=== PATIENT | male | born 1965 | race Caucasian/White ===

== ENCOUNTER 2021-08-24 13:15 | Emergency (ER) | payer BC, OTHER ==
[~2021-08-24] VITALS: Ht 177.8 cm; Wt 145.0 kg
[2021-08-24 13:25] VITALS: BP 140/78
[2021-08-24] MEDS ORDERED: LIDOCAINE WITH 8.4% SOD BICARB 3 ML DISP.SYRIN. INJ ONE (13:30)
--- NOTE | 2021-08-24 13:53 | PHYS DOC ---
Past Medical History Past Surgical History: Cholecystectomy General Adult EDM: Chief Complaint: LACERATION/AVULSION HPI: HPI: Patient is a 55 year old male patient with history of COVID19 with chronic hypoxia O2 saturations 88% on room air baseline presenting to the ED today to be evaluated after falling. [place], [place] he tripped on the carpet and fell face forward hitting his forehead on a trash can. Patient denies any loss of consciousness. He has a laceration on the left upper eyebrow. Denies being on any blood thinners. Review of Systems: Review of Systems: Constitutional: Denies fever or chills. [] Eyes: Denies change in visual acuity. [] HENT: Denies nasal congestion or sore throat. [] Respiratory: Denies cough or shortness of breath. [] Cardiovascular: Denies chest pain or edema. [] GI: Denies abdominal pain, nausea, vomiting, bloody stools or diarrhea. [] : Denies dysuria. [] Musculoskeletal: Denies back pain or joint pain. [] Integument: Reports left upper eyebrow laceration] Neurologic: Denies headache, focal weakness or sensory changes. [] Psychiatric: Denies depression or anxiety. [] Heart Score: C/O Chest Pain: N/A Risk Factors: Risk Factors: DM, Current or recent (<one month) smoker, HTN, HLP, family history of CAD, obesity. Risk Scores: Score 0 - 3: 2.5% MACE over next 6 weeks - Discharge Home Score 4 - 6: 20.3% MACE over next 6 weeks - Admit for Clinical Observation Score 7 - 10: 72.7% MACE over next 6 weeks - Early Invasive Strategies Current Medications: Current Medications Medications (Trade) Dose Ordered Sig/Cuauhtemoc Start Time Stop Time Status Last Admin Dose Admin Diphtheria/ Tetanus/Acell Pertussis (Boostrix) 0.5 ml ONCE ONCE 08/24/21 14:00 08/24/21 14:01 Lidocaine HCl (Buffered Lidocaine 1%) 6 ml 1X ONCE 08/24/21 13:30 08/24/21 13:32 DC Allergies: Allergies: Allergies Coded Allergies Type Severity Reaction Last Updated Verified apixaban Allergy Intermediate Unknown 08/24/21 Yes Physical Exam: PE: Constitutional: Well developed, well nourished, no acute distress, non-toxic appearance. [] HENT: Normocephalic, bilateral external ears normal, oropharynx moist, no oral exudates, nose normal. [] Eyes: PERRLA, EOMI, conjunctiva normal, no discharge. [] Neck: Normal range of motion, no tenderness, supple, no stridor. [] Cardiovascular:Heart rate regular rhythm, no murmur [] Lungs & Thorax: Bilateral breath sounds clear to auscultation [] Abdomen: Bowel sounds normal, soft, no tenderness, no masses, no pulsatile masses. [] Skin: Left upper eyebrow with a laceration approximately 3 cm long, there is no eye involvement. Bleeding is controlled. Back: No tenderness, no CVA tenderness. [] Extremities: No tenderness, no cyanosis, no clubbing, ROM intact, no edema. [] Neurologic: Alert and oriented X 3, normal motor function, normal sensory function, no focal deficits noted. Cranial nerves II through XII intact Psychologic: Affect normal, judgement normal, mood normal. [] Current Patient Data: Vital Signs: Vital Signs Date Time Temp Pulse Resp B/P (MAP) Pulse Ox O2 Delivery O2 Flow Rate FiO2 08/24/21 13:25 97.1 61 20 140/78 (98) 88 Room Air 97.1 EKG: EKG: [] Radiology/Procedures: Radiology/Procedures: PROCEDURE: CT HEAD AND CERVICAL SPINE WO CT head without contrast: Reason for examination: Fell hitting head with forehead laceration and neck pain. Helical images were obtained through the brain with no contrast administered. Reconstruction was performed in sagittal and coronal planes. Ventricular systems are symmetric and not abnormally dilated. No midline shift is seen. There is no evidence of intracranial hemorrhage, acute infarct, mass or edema. No abnormalities are seen at the orbits. The paranasal sinuses show some mild mucosal disease in the ethmoid air cells. There are small fluid levels b ilaterally in the maxillary antra. Mastoid air cells are clear. No acute skull abnormality is seen. Note is made of some soft tissue edema in the left frontal region. IMPRESSION: No acute intracranial abnormality evident. Small fluid levels bilaterally in the maxillary antra. Mild mucosal disease in ethmoid air cells. Changes consistent with scalp hematoma in the left frontal region. CT cervical spine without contrast: Helical images were obtained through the cervical spine from skull base through the thoracic apices with no contrast administered. Reconstruction was performed in sagittal and coronal planes. The C1 ring is intact. The odontoid process is intact and normally centered between the lateral masses of C1. The cervical vertebral bodies are normally aligned anteriorly and posteriorly. No acute fracture or subluxation is seen. Posterior elements appear to be intact. Note is made of some hypertrophic bone formation posteriorly at the C3, C4 and C5 levels. There is some hypertrophic spurring off the endplates at the C 5/6 disc level. The intervertebral disc spaces however are fairly well-maintained. Prevertebral soft tissues are normal. IMPRESSION: Hypertrophic bone formation posteriorly at the C3, C4 and C5 vertebral bodies. This may reflect remote trauma. Degenerative changes at the C5-6 disc level. No acute abnormality in the cervical spine. Exposure: One or more of the following individualized dose reduction techniques were utilized for this examination: 1. Automated exposure control 2. Adjustment of the mA and/or kV according to patient size 3. Use of iterative reconstruction technique. Electronically signed by: Saira Maddox MD (08/24/2021 1:55 PM) [facility] DICTATED and SIGNED BY: SAIRA MADDOX MD DATE: 08/24/21 1347 Laceration/Wound Repair Wound Location: Left upper eyebrow Wound's Depth, Shape: Horizontal Wound Length (cm): Approximately 3 cm Wound Explored: clean Irrigated w/ Saline (ccs): 10 Betadine Prep?: Yes Anesthesia: 1% of buffered lidocaine Volume Anesthetic (ccs): Approximately 4 cc Wound Repaired With: Dissolvable gut Suture Size/Type: 5.0/interrupted sutures Number of Sutures: 6 Progress : Wound was left open to air Course & Med Decision Making: Course & Med Decision Making Pertinent Labs and Imaging studies reviewed. (See chart for details) This a 55-year-old male patient presenting to the ED today to be [place]. He states he tripped on a rug and fell he has a left upper eyebrow laceration. No LOC CT of the head and cervical spine are negative for any acute findings. Tetanus updated. Laceration repaired by me as noted in procedures. Wound care instructions and return precautions provided. Dragon Disclaimer: Dragon Disclaimer: This electronic medical record was generated, in whole or in part, using a voice recognition dictation system. Departure Departure Impression: Primary Impression: Fall from standing Qualified Codes: W19.XXXA - Unspecified fall, initial encounter Additional Impressions: Laceration of left eyebrow Qualified Codes: S01.112A - Laceration without foreign body of left eyelid and periocular area, initial encounter Forehead contusion Qualified Codes: S00.83XA - Contusion of other part of head, initial encou nter Disposition: 01 HOME / SELF CARE / HOMELESS Condition: STABLE Patient Instructions: Facial Laceration, Fall Prevention and Home Safety Additional Instructions: You have a laceration on the left upper eyebrow that was repaired with dissolvable stitches. You can shower and wash your face, do not soak the laceration site. Please apply Neosporin to the area twice a day for 7 days. Monitor the area for any signs of infection including but not limited to increased redness, warmth, yellow drainage from the area and return to the ED or see your doctor if they occur. Your CT of the head and neck are negative for any acute findings. KEVIN CM [employer] August 24, 2021 13:53
--- NOTE | 2021-08-24 13:58 | RAD ---
CT head without contrast: Reason for examination: Fell hitting head with forehead laceration and neck pain. Helical images were obtained through the brain with no contrast administered. Reconstruction was perf ormed in sagittal and coronal planes. Ventricular systems are symmetric and not abnormally dilated. No midline shift is seen. There is no e vidence of intracranial hemorrhage, acute infarct, mass or edema. No abnormalities are seen at the orbits. The paranasal sinuses show some mild mucosal disease in the ethmoid air cells. There are small fluid levels bilaterally in the maxillary antra. Mastoid air cells are clear. No acute skull abnormality is seen. Note is made of some soft tissue edema in the left frontal region . IMPRESSION: No acute intracranial abnormality evident. Small fluid levels bilaterally in the maxillary antra. Mild mucosal disease in ethmoid air cells. Changes consistent with scalp hematoma in the left frontal region. CT cervical spine without contrast: Helical images were obtained through the cervical spine from skull base through the thoracic apices w ith no contrast administered. Reconstruction was performed in sagittal and coronal planes. The C1 ring is intact. The odontoid process is intact and normally centered between the lateral juani s of C1. The cervical vertebral bodies are normally aligned anteriorly and posteriorly. No acute frac ture or subluxation is seen. Posterior elements appear to be intact. Note is made of some hypertrophi c bone formation posteriorly at the C3, C4 and C5 levels. There is some hypertrophic spurring off the endplates at the C 5/6 disc level. The intervertebral disc spaces however are fairly well-maintained . Prevertebral soft tissues are normal. IMPRESSION: Hypertrophic bone formation posteriorly at the C3, C4 and C5 vertebral bodies. This may reflect remot e trauma. Degenerative changes at the C5-6 disc level. No acute abnormality in the cervical spine. Exposure: One or more of the following individualized dose reduction techniques were utilized for thi s examination: 1. Automated exposure control 2. Adjustment of the mA and/or kV according to patient size 3. Use of iterative reconstruction technique. Electronically signed by: Saira Flores MD (08/24/2021 1:55 PM) [facility]
[2021-08-24] MEDS ORDERED: DIPHTH,PERTUSS(ACELL),TET TOX 0.5 ML DISP.SYRIN. VAX IM ONE (14:00)
== END 2021-08-24 15:45 | disposition home or self-care (01) ==
LOC: ER 13:15
DX: S01.112A Laceration without foreign body of left eyelid and periocular area, initial encounter (principal); Z88.8 Allergy status to other drugs, medicaments and biological substances; W18.09XA Striking against other object with subsequent fall, initial encounter; Y93.89 Activity, other specified; Y92.89 Other specified places as the place of occurrence of the external cause; Y99.8 Other external cause status
CPT/HCPCS: 12013; 70450; 72125; 90471; 90715; 99284; J3490